=== PATIENT | female | born 1950 | race Caucasian/White ===

== ENCOUNTER 2017-05-07 14:50 | Emergency (ER) | payer MEDICARE, OTHER ==
[~2017-05-07] VITALS: Ht 160 cm; Wt 111.1 kg
[2017-05-07] MEDS ORDERED: ZESTORETIC 20-121 EA (15:00)
[2017-05-07] MEDS ORDERED: LISI5 (15:00)
[2017-05-07 15:19] LABS: BASOPHILS ABSOLUTE AUTO 0.02 K/mm3 (0.00-0.23); BASOPHILS PERCENT AUTO 0 % (0-2); EOSINOPHILS ABSOLUTE AUTO 0.15 K/mm3 (0.00-0.68); EOSINOPHILS PERCENT AUTO 1 % (0-6); Hematocrit 47.3 % (33.0-51.0); Hemoglobin 16.7 g/dL (11.5-16.0); IMMATURE GRAN ABSOLUTE AUTO 0.03 K/mm3 (0.00-0.10); IMMATURE GRAN PERCENT AUTO 0 % (0-1); LYMPHOCYTES ABSOLUTE AUTO 2.07 K/mm3 (0.84-5.20); LYMPHOCYTES PERCENT AUTO 20 % (21-46); MONOCYTES PERCENT AUTO 9 % (4-13); Mean Corpuscular HGB 33.2 pg (26.0-34.0); Mean Corpuscular HGB Conc 35.3 g/dL (31.5-36.5); Mean Corpuscular Volume 94 fL (80-100); NEUTROPHILS ABSOLUTE AUTO 7.46 K/mm3 (1.96-9.15); NEUTROPHILS PERCENT AUTO 70 % (41-73); Platelet Count 237 K/mm3 (150-400); RDW Coefficient Variation 13.1 % (11.7-14.2); RDW Standard Deviation 44.7 fL (35.1-46.3); Red Blood Cell Count 5.03 M/mm3 (3.80-5.20); White Blood Cell Count 10.63 K/mm3 (4.00-11.30)
[2017-05-07 15:37] LABS: Alanine Aminotransfer (ALT/SGP 34 U/L (12-78); Albumin, Blood 3.3 g/dL (3.4-5.0); Albumin/Globulin Ratio 0.8 (0.8-1.8); Alk Phos 101 U/L (50-136); Anion Gap 6 mmol/L (6-16); Aspartate Aminotrans (AST/SGOT 24 U/L (12-37); Bilirubin, Total 0.4 mg/dL (0.1-1.0); Blood Urea Nitrogen 12 mg/dL (8-24); Bun/Creatinine Ratio 25.5 (12.0-20.0); CO2, Blood 30 mmol/L (21-32); Calcium, Blood 9.2 mg/dL (8.5-10.1); Chloride, Blood 105 mmol/L (98-108); Creatinine, Blood 0.47 mg/dL (0.40-1.00); Globulin, Blood 4.1 g/dL (2.2-4.0); Glomerular Filtration Rate >60 (60-); Glucose, Blood 110 mg/dL (70-99); Potassium, Blood 3.7 mmol/L (3.5-5.5); Sodium, Blood 141 mmol/L (136-145); Total Protein, Blood 7.4 g/dL (6.4-8.2)
[2017-05-07 17:49] LABS: Source, Urine Clean Catch
[2017-05-07 17:52] LABS: Bilirubin, Urine Neg (Neg); Blood, Urine 5+ (Neg); Glucose Qualitative, Urine Neg (Neg); Ketones, Urine Neg (Neg); Leukocyte Esterase, Urine 2+ (Neg); Nitrite, Urine Neg (Neg); Protein, Urine 1+ (Neg); Specific Gravity, Urine 1.015 (1.003-1.022); Urobilinogen, Urine NORM (Normal)
[2017-05-07 18:46] LABS: Appearance, Urine Hazy (Clear); Color, Urine Yellow (P-Yellow)
[2017-05-07 18:50] LABS: Bacteria Mod /hpf; Red Blood Cells, Urine 25-50 /hpf (0-2); Squamous Epithelial Cells Few /hpf (Few); White Blood Cells, Urine 25-50 /hpf (0-5)
[2017-05-07] MEDS ORDERED: CEPH500 PO (21:42)
== END 2017-05-07 22:00 | disposition home or self-care (01) ==
LOC: ER 14:50
PROVIDERS: Emergency Medicine
DX: N20.0 Calculus of kidney (principal); N39.0 Urinary tract infection, site not specified; E27.8 Other specified disorders of adrenal gland; I10 Essential (primary) hypertension; F17.200 Nicotine dependence, unspecified, uncomplicated; Z88.2 Allergy status to sulfonamides; Z79.899 Other long term (current) drug therapy; Z98.84 Bariatric surgery status
CPT/HCPCS: 36415; 74176; 80053; 81001; 85025; 96365; 96375; 99284; J0696; J1885; J2270

== ENCOUNTER 2017-07-08 08:44 | Emergency (ER) | payer MEDICARE, OTHER ==
[~2017-07-08] VITALS: Ht 160 cm; Wt 108.9 kg
[~2017-07-08 08:44] MED LIST: CEPH500 PO; LISI5; ZESTORETIC 20-121 EA
[2017-07-08 09:57] LABS: BASOPHILS ABSOLUTE AUTO 0.03 K/mm3 (0.00-0.23); BASOPHILS PERCENT AUTO 0 % (0-2); EOSINOPHILS ABSOLUTE AUTO 0.04 K/mm3 (0.00-0.68); EOSINOPHILS PERCENT AUTO 0 % (0-6); Hematocrit 45.5 % (33.0-51.0); Hemoglobin 15.7 g/dL (11.5-16.0); IMMATURE GRAN ABSOLUTE AUTO 0.04 K/mm3 (0.00-0.10); IMMATURE GRAN PERCENT AUTO 0 % (0-1); LYMPHOCYTES ABSOLUTE AUTO 1.26 K/mm3 (0.84-5.20); LYMPHOCYTES PERCENT AUTO 8 % (21-46); MONOCYTES ABSOLUTE AUTO 1.52 K/mm3 (0.16-1.47); MONOCYTES PERCENT AUTO 10 % (4-13); Mean Corpuscular HGB 32.6 pg (26.0-34.0); Mean Corpuscular HGB Conc 34.5 g/dL (31.5-36.5); Mean Corpuscular Volume 95 fL (80-100); Mean Platelet Volume 10.7 fL (9.1-12.4); NEUTROPHILS ABSOLUTE AUTO 12.22 K/mm3 (1.96-9.15); NEUTROPHILS PERCENT AUTO 81 % (41-73); Platelet Count 188 K/mm3 (150-400); RDW Coefficient Variation 12.6 % (11.7-14.2); RDW Standard Deviation 44.1 fL (35.1-46.3); Red Blood Cell Count 4.81 M/mm3 (3.80-5.20); White Blood Cell Count 15.11 K/mm3 (4.00-11.30)
[2017-07-08 10:13] LABS: Alanine Aminotransfer (ALT/SGP 21 U/L (12-78); Albumin, Blood 2.9 g/dL (3.4-5.0); Albumin/Globulin Ratio 0.7 (0.8-1.8); Alk Phos 84 U/L (50-136); Anion Gap 7 mmol/L (6-16); Aspartate Aminotrans (AST/SGOT 12 U/L (12-37); Blood Urea Nitrogen 11 mg/dL (8-24); CO2, Blood 27 mmol/L (21-32); Calcium, Blood 8.4 mg/dL (8.5-10.1); Chloride, Blood 105 mmol/L (98-108); Creatinine, Blood 0.58 mg/dL (0.40-1.00); Globulin, Blood 4.4 g/dL (2.2-4.0); Glomerular Filtration Rate >60 (60-); Glucose, Blood 95 mg/dL (70-99); Potassium, Blood 3.5 mmol/L (3.5-5.5); Sodium, Blood 139 mmol/L (136-145); Total Protein, Blood 7.3 g/dL (6.4-8.2); Troponin I <0.015 ng/mL (0.000-0.040)
[2017-07-08 10:35] LABS: Source, Urine Clean Catch
[2017-07-08 10:51] LABS: Bilirubin, Urine Neg (Neg); Blood, Urine 4+ (Neg); Glucose Qualitative, Urine Neg (Neg); Ketones, Urine Neg (Neg); Leukocyte Esterase, Urine 3+ (Neg); Nitrite, Urine Neg (Neg); Protein, Urine 2+ (Neg); Specific Gravity, Urine 1.015 (1.003-1.022); Urobilinogen, Urine NORM (Normal)
[2017-07-08 11:01] LABS: Appearance, Urine Cloudy (Clear); Color, Urine Amber (P-Yellow)
[2017-07-08 11:02] LABS: Bacteria Many /hpf; Red Blood Cells, Urine 0-2 /hpf (0-2); Squamous Epithelial Cells Mod /hpf (Few)
[2017-07-08] MEDS ORDERED: Zofran Odt4 MG SL (11:29)
[2017-07-08] MEDS ORDERED: CEPH500 PO (11:29)
[2017-07-08] MEDS ORDERED: Flomax0.4 MG PO (11:29)
[2017-07-08] MEDS ORDERED: Norco 5-325 Ta1 EACH PO (11:29)
== END 2017-07-08 12:07 | disposition home or self-care (01) ==
LOC: ER 08:44
PROVIDERS: Emergency Medicine
DX: N39.0 Urinary tract infection, site not specified (principal); D35.00 Benign neoplasm of unspecified adrenal gland; N20.0 Calculus of kidney; Z88.2 Allergy status to sulfonamides; Z79.899 Other long term (current) drug therapy; I10 Essential (primary) hypertension
CPT/HCPCS: 36415; 71046; 80053; 81001; 84484; 85025; 87077; 87086; 87186; 93005; 93010; 96361; 96374; 96375; 96376; 99284; J0696; J1170; J1885; J2405; J7030

== ENCOUNTER 2017-07-15 13:21 | Emergency (ER) | payer MEDICARE, OTHER ==
[~2017-07-15] VITALS: Ht 160 cm; Wt 108.0 kg
[~2017-07-15 13:21] MED LIST changes: +Flomax0.4 MG PO; +Norco 5-325 Ta1 EACH PO; +Zofran Odt4 MG SL
[2017-07-15 13:57] LABS: BASOPHILS ABSOLUTE AUTO 0.03 K/mm3 (0.00-0.23); BASOPHILS PERCENT AUTO 0 % (0-2); EOSINOPHILS ABSOLUTE AUTO 0.18 K/mm3 (0.00-0.68); EOSINOPHILS PERCENT AUTO 2 % (0-6); Hematocrit 45.3 % (33.0-51.0); Hemoglobin 15.7 g/dL (11.5-16.0); IMMATURE GRAN ABSOLUTE AUTO 0.02 K/mm3 (0.00-0.10); IMMATURE GRAN PERCENT AUTO 0 % (0-1); LYMPHOCYTES PERCENT AUTO 23 % (21-46); MONOCYTES ABSOLUTE AUTO 0.59 K/mm3 (0.16-1.47); MONOCYTES PERCENT AUTO 7 % (4-13); Mean Corpuscular HGB 32.3 pg (26.0-34.0); Mean Corpuscular HGB Conc 34.7 g/dL (31.5-36.5); Mean Corpuscular Volume 93 fL (80-100); Mean Platelet Volume 10.2 fL (9.1-12.4); NEUTROPHILS ABSOLUTE AUTO 5.83 K/mm3 (1.96-9.15); NEUTROPHILS PERCENT AUTO 68 % (41-73); Platelet Count 273 K/mm3 (150-400); RDW Coefficient Variation 12.2 % (11.7-14.2); RDW Standard Deviation 42.5 fL (35.1-46.3); Red Blood Cell Count 4.86 M/mm3 (3.80-5.20); White Blood Cell Count 8.65 K/mm3 (4.00-11.30)
[2017-07-15 14:30] LABS: Alanine Aminotransfer (ALT/SGP 39 U/L (12-78); Albumin, Blood 2.9 g/dL (3.4-5.0); Albumin/Globulin Ratio 0.6 (0.8-1.8); Alk Phos 111 U/L (50-136); Anion Gap 6 mmol/L (6-16); Aspartate Aminotrans (AST/SGOT 25 U/L (12-37); Bilirubin, Total 0.3 mg/dL (0.1-1.0); Blood Urea Nitrogen 11 mg/dL (8-24); Bun/Creatinine Ratio 23.7 (12.0-20.0); CO2, Blood 28 mmol/L (21-32); Calcium, Blood 9.4 mg/dL (8.5-10.1); Chloride, Blood 105 mmol/L (98-108); Creatinine, Blood 0.47 mg/dL (0.40-1.00); Globulin, Blood 4.6 g/dL (2.2-4.0); Glomerular Filtration Rate >60 (60-); Glucose, Blood 93 mg/dL (70-99); Sodium, Blood 139 mmol/L (136-145); Total Protein, Blood 7.5 g/dL (6.4-8.2)
[2017-07-15 15:44] LABS: Source, Urine Clean Catch
[2017-07-15 15:52] LABS: Appearance, Urine Cloudy (Clear); Bilirubin, Urine Neg (Neg); Blood, Urine 5+ (Neg); Color, Urine Amber (P-Yellow); Glucose Qualitative, Urine Neg (Neg); Ketones, Urine 1+ (Neg); Leukocyte Esterase, Urine 3+ (Neg); Nitrite, Urine Neg (Neg); Protein, Urine 3+ (Neg); Urobilinogen, Urine NORM (Normal)
[2017-07-15 16:02] LABS: Red Blood Cells, Urine TNTC /hpf (0-2)
[2017-07-15 16:03] LABS: Bacteria Many /hpf; Squamous Epithelial Cells Mod /hpf (Few)
[2017-07-15 16:04] LABS: Transitional Epithelial Cells Few /hpf (0-Rare)
== END 2017-07-15 17:50 | disposition short-term general hospital (02) ==
LOC: ER 13:21
PROVIDERS: Emergency Medicine; Physician Assistant
DX: N20.0 Calculus of kidney (principal); I10 Essential (primary) hypertension; Z88.2 Allergy status to sulfonamides; Z79.899 Other long term (current) drug therapy; F17.200 Nicotine dependence, unspecified, uncomplicated
CPT/HCPCS: 36415; 76770; 80053; 81001; 83735; 85025; 87086; 96361; 96374; 96375; 96376; 99285; J0696; J1170; J1885; J2405; J7030

== ENCOUNTER 2017-07-27 12:35 | Emergency (ER) | payer MEDICARE, OTHER ==
[~2017-07-27] VITALS: Ht 160 cm; Wt 108.9 kg
[2017-07-27 14:08] LABS: BASOPHILS ABSOLUTE AUTO 0.03 K/mm3 (0.00-0.23); BASOPHILS PERCENT AUTO 0 % (0-2); EOSINOPHILS ABSOLUTE AUTO 0.19 K/mm3 (0.00-0.68); EOSINOPHILS PERCENT AUTO 2 % (0-6); Hematocrit 47.7 % (33.0-51.0); Hemoglobin 16.4 g/dL (11.5-16.0); IMMATURE GRAN ABSOLUTE AUTO 0.03 K/mm3 (0.00-0.10); IMMATURE GRAN PERCENT AUTO 0 % (0-1); LYMPHOCYTES ABSOLUTE AUTO 2.03 K/mm3 (0.84-5.20); LYMPHOCYTES PERCENT AUTO 24 % (21-46); MONOCYTES ABSOLUTE AUTO 0.83 K/mm3 (0.16-1.47); MONOCYTES PERCENT AUTO 10 % (4-13); Mean Corpuscular HGB 32.2 pg (26.0-34.0); Mean Corpuscular HGB Conc 34.4 g/dL (31.5-36.5); Mean Corpuscular Volume 94 fL (80-100); Mean Platelet Volume 10.6 fL (9.1-12.4); NEUTROPHILS ABSOLUTE AUTO 5.42 K/mm3 (1.96-9.15); NEUTROPHILS PERCENT AUTO 64 % (41-73); Platelet Count 243 K/mm3 (150-400); RDW Coefficient Variation 12.4 % (11.7-14.2); Red Blood Cell Count 5.09 M/mm3 (3.80-5.20); White Blood Cell Count 8.53 K/mm3 (4.00-11.30)
[2017-07-27 14:11] LABS: Source, Urine Clean Catch
[2017-07-27 14:15] LABS: Alanine Aminotransfer (ALT/SGP 33 U/L (12-78); Albumin, Blood 3.2 g/dL (3.4-5.0); Albumin/Globulin Ratio 0.7 (0.8-1.8); Alk Phos 87 U/L (50-136); Anion Gap 7 mmol/L (6-16); Aspartate Aminotrans (AST/SGOT 26 U/L (12-37); Bilirubin, Total 0.3 mg/dL (0.1-1.0); Blood Urea Nitrogen 10 mg/dL (8-24); CO2, Blood 27 mmol/L (21-32); Calcium, Blood 8.9 mg/dL (8.5-10.1); Chloride, Blood 105 mmol/L (98-108); Creatinine, Blood 0.45 mg/dL (0.40-1.00); Globulin, Blood 4.3 g/dL (2.2-4.0); Glomerular Filtration Rate >60 (60-); Glucose, Blood 78 mg/dL (70-99); Potassium, Blood 3.9 mmol/L (3.5-5.5); Sodium, Blood 139 mmol/L (136-145); Total Protein, Blood 7.5 g/dL (6.4-8.2)
[2017-07-27 14:16] LABS: Bilirubin, Urine Neg (Neg); Blood, Urine 5+ (Neg); Glucose Qualitative, Urine Neg (Neg); Ketones, Urine Neg (Neg); Leukocyte Esterase, Urine 1+ (Neg); Nitrite, Urine Neg (Neg); Protein, Urine Neg (Neg); Specific Gravity, Urine 1.005 (1.003-1.022); Urobilinogen, Urine NORM (Normal)
[2017-07-27 15:07] LABS: Appearance, Urine Clear (Clear); Color, Urine Pale Yellow (P-Yellow)
[2017-07-27 15:08] LABS: Red Blood Cells, Urine Not Seen /hpf (0-2); Squamous Epithelial Cells Few /hpf (Few); White Blood Cells, Urine Not Seen /hpf (0-5)
[2017-07-27 15:10] LABS: Bacteria Not Seen /hpf
[2017-07-27] MEDS ORDERED: Percocet 5-3251 EACH PO (20:54)
== END 2017-07-27 21:08 | disposition home or self-care (01) ==
LOC: ER 12:35
PROVIDERS: Emergency Medicine
DX: R32 Unspecified urinary incontinence (principal); R10.9 Unspecified abdominal pain; I10 Essential (primary) hypertension; F17.200 Nicotine dependence, unspecified, uncomplicated; Z96.0 Presence of urogenital implants; Z88.2 Allergy status to sulfonamides; Z79.899 Other long term (current) drug therapy; Z87.442 Personal history of urinary calculi
CPT/HCPCS: 36415; 74018; 76770; 80053; 81001; 83690; 85025; 87086; 96374; 96375; 96376; 99284; J1885; J2405; J3010

== ENCOUNTER → 2017-09-21 | Emergency (ER) | payer MEDICARE, OTHER ==
[~2017-09-21] MED LIST changes: +Percocet 5-3251 EACH PO
== END ==
LOC: ER 12:46
DX: Z53.21 Procedure and treatment not carried out due to patient leaving prior to being seen by health care provider (principal)

== ENCOUNTER 2018-08-04 05:57 | Day surgery (SDC) | payer MEDICARE, OTHER ==
[~2018-08-04] VITALS: Ht 162.6 cm; Wt 133.0 kg
[~2018-08-04 05:57] MED LIST changes: +ASCO500 PO; +ASPI325 PO; +BIOTIN2500 MCG PO; +Fish Oil 10001000 MG PO; +Hair, Skin & N1 EACH PO; +OMEPRAZOLE MAGN20 MG PO; +TRAM50 PO
--- NOTE | 2018-08-04 06:51 | NUR ---
History, Chart, Medications and Allergies reviewed before start of procedure. Lungs with expiratory wheeze. Denies SOB.
--- NOTE | 2018-08-04 10:40 | NUR ---
REPORT FROM PACU.
--- NOTE | 2018-08-04 10:50 | NUR ---
PT TO ROOM 213 VIA STRETCHER. ALERT AND ORIENTED. PT FAMILY WITH PRESENT.
--- NOTE | 2018-08-04 12:08 | NUR ---
PT MEDICATED WITH PRILOSEC PER REQUEST. PAIN MANAGED. ASSISTED PT TO SITTING ON SIDE OF BED TO DANGLE LEGS.
--- NOTE | 2018-08-04 14:33 | NUR ---
SNACK PROVIDED TO PT. PT MEDICATED WITH 1 OXY PO FOR C/O PAIN5/10. PT SITTING IN CHAIR AFTER WORKING WITH THERAPY. POLAR CARE TO KNEE.
--- NOTE | 2018-08-04 15:37 | NUR ---
PT SITTING UP IN CHAIR. DANGLING LEGS. NADN. FAMILY AT BEDSIDE.
--- NOTE | 2018-08-04 16:10 | NUR ---
pt ambulates approx 150ft with walker. yo activity well. minimal assistance needed.
--- NOTE | 2018-08-04 16:56 | NUR ---
FAMILY AT BEDSIDE, ANCEF STARTED PER EMAR. PT SITTING IN CHAIR.
--- NOTE | 2018-08-05 04:23 | NUR ---
SUMMARY POD 1 S/P RTKA. HAS DONE VERY WELL DURING NIGHT. PT IS UP AMBULATING WITH JUST SBA WITH FWW AND TOLERATES WELL. PAIN IS MANAGED WITH 2 OXYCODONE. DRESSING TO RIGHT KNEE CDI WITH GOOD CIRC CHECKS. TOLERATING PO, IV SL. VOIDING WELL. PLAN FOR DC HOME TODAY AFTER PT/OT.
[2018-08-05 04:25] LABS: BASOPHILS ABSOLUTE AUTO 0.01 K/mm3 (0.00-0.23); BASOPHILS PERCENT AUTO 0 % (0-2); EOSINOPHILS ABSOLUTE AUTO 0.04 K/mm3 (0.00-0.68); EOSINOPHILS PERCENT AUTO 0 % (0-6); Hematocrit 36.7 % (33.0-51.0); Hemoglobin 12.6 g/dL (11.5-16.0); IMMATURE GRAN ABSOLUTE AUTO 0.06 K/mm3 (0.00-0.10); IMMATURE GRAN PERCENT AUTO 0 % (0-1); LYMPHOCYTES ABSOLUTE AUTO 1.15 K/mm3 (0.84-5.20); LYMPHOCYTES PERCENT AUTO 8 % (21-46); MONOCYTES ABSOLUTE AUTO 1.17 K/mm3 (0.16-1.47); MONOCYTES PERCENT AUTO 8 % (4-13); Mean Corpuscular HGB Conc 34.3 g/dL (31.5-36.5); Mean Corpuscular Volume 96 fL (80-100); Mean Platelet Volume 10.7 fL (9.1-12.4); NEUTROPHILS ABSOLUTE AUTO 11.93 K/mm3 (1.96-9.15); NEUTROPHILS PERCENT AUTO 83 % (41-73); Platelet Count 183 K/mm3 (150-400); RDW Coefficient Variation 12.4 % (11.7-14.2); RDW Standard Deviation 43.4 fL (35.1-46.3); Red Blood Cell Count 3.82 M/mm3 (3.80-5.20); White Blood Cell Count 14.36 K/mm3 (4.00-11.30)
[2018-08-05 04:43] LABS: Anion Gap 8 mmol/L (6-16); Blood Urea Nitrogen 17 mg/dL (8-24); Bun/Creatinine Ratio 30.8 (12.0-20.0); CO2, Blood 27 mmol/L (21-32); Calcium, Blood 8.5 mg/dL (8.5-10.1); Chloride, Blood 103 mmol/L (98-108); Creatinine, Blood 0.55 mg/dL (0.40-1.00); Glomerular Filtration Rate >60 (60-); Glucose, Blood 110 mg/dL (70-99); Magnesium, Blood 2.1 mg/dL (1.6-2.4); Sodium, Blood 138 mmol/L (136-145)
[2018-08-05] MEDS ORDERED: OXYC5 PO (10:08)
[2018-08-05] MEDS ORDERED: PROM25 PO (10:08)
[2018-08-05] MEDS ORDERED: ENOX40I SC (10:09)
--- NOTE | 2018-08-05 14:50 | NUR ---
08/05/18 1450 Regi Major VERIFICATIONS: EDIT CHART.
== END 2018-08-05 11:01 | disposition home or self-care (01) ==
LOC: ORSCMMR 05:57 → ORD 07:30 → SURS 10:50 → ORSCMMR 08-05 11:01
PROVIDERS: Orthopaedic Surgery
PROC: 0SRC0J9 Replacement of Right Knee Joint with Synthetic Substitute, Cemented, Open Approach (ICD-10-PCS; principal; 2018-08-04 07:30)
PROC: 8E0YXBZ Computer Assisted Procedure of Lower Extremity (ICD-10-PCS; principal; 2018-08-04 07:30)
DX: M17.11 Unilateral primary osteoarthritis, right knee (principal); I10 Essential (primary) hypertension; J45.909 Unspecified asthma, uncomplicated; Z87.891 Personal history of nicotine dependence; E66.01 Morbid (severe) obesity due to excess calories; Z68.43 Body mass index [BMI] 50.0-59.9, adult
CPT/HCPCS: 36415; 73560-RT; 80048; 83735; 85025; 88300; 97110; 97116; 97162; 97530; C1713; C1776; J0171; J0690; J0735; J1100; J1650; J1885; J2250; J2405; J2704; J2795; J3370; J7120

== ENCOUNTER → 2018-09-02 | Outpatient (CLI) | payer MEDICARE, OTHER ==
[~2018-09-02] MED LIST changes: +ENOX40I SC; +OXYC5 PO; +PROM25 PO
== END | disposition home or self-care (01) ==
LOC: LAB SHORT 11:36 → LAB 11:36
DX: N39.0 Urinary tract infection, site not specified (principal)
CPT/HCPCS: 87077; 87086; 87186

== ENCOUNTER 2018-11-10 06:01 | Day surgery (SDC) | payer MEDICARE, OTHER ==
[~2018-11-10] VITALS: Ht 162.6 cm; Wt 125.3 kg
--- NOTE | 2018-11-10 06:49 | NUR ---
History, Chart, Medications and Allergies reviewed before start of procedure. Lungs clear T/O to Auscultation. Patient confirms NPO status and agrees with scheduled surgery. Pre-Op teaching done. Pt verbalizes understanding.
--- NOTE | 2018-11-10 10:41 | NUR ---
1025-assumed care of pt. BLADDER SCAN SHOWED 512ML OF URINE. PT REFUSES TO BE CATHED. ATTEMPTED USE OF BEDPAN.PT WANTS TO GET ON COMMODE.
--- NOTE | 2018-11-10 11:24 | NUR ---
IMMEDIATELY UPON TRANSFER TO ROOM, PT REQUESTS TO USE THE TOILET. THIS RN ASSESSED SENSATION/STRENGTH TO BLE WITH FULL FEELING AND STRENGTH. PT TOLERATED TRANSFER TO BATHROOM WITH FWW AND GAIT BELT, TWO NURSING STAFF MEMBERS ACCOMPANY. PT UP IN CHAIR CURRENTLY
--- NOTE | 2018-11-10 17:12 | NUR ---
SHIFT SUMMARY: PT REMAINED A/0 X 4, PLEASANT/COOPERATIVE, AMBULATED IN HALLWAY WITH PT AND WITH NURSING STAFF. PT TOLERATED PO INTAKE WITH NO N/V. PT STATES PAIN CONTROLLED PER MAR TO HER EXPECTATION. PT HAS URINE OUTPUT >300 ML FROM 1230 TO CURRENT. POST OP VSS AND COMPLETE.
[2018-11-11 04:42] LABS: BASOPHILS ABSOLUTE AUTO 0.02 K/mm3 (0.00-0.23); BASOPHILS PERCENT AUTO 0 % (0-2); EOSINOPHILS ABSOLUTE AUTO 0.08 K/mm3 (0.00-0.68); EOSINOPHILS PERCENT AUTO 1 % (0-6); Hematocrit 38.4 % (33.0-51.0); Hemoglobin 12.8 g/dL (11.5-16.0); IMMATURE GRAN ABSOLUTE AUTO 0.06 K/mm3 (0.00-0.10); IMMATURE GRAN PERCENT AUTO 0 % (0-1); LYMPHOCYTES ABSOLUTE AUTO 1.32 K/mm3 (0.84-5.20); LYMPHOCYTES PERCENT AUTO 9 % (21-46); MONOCYTES PERCENT AUTO 9 % (4-13); Mean Corpuscular HGB 31.4 pg (26.0-34.0); Mean Corpuscular HGB Conc 33.3 g/dL (31.5-36.5); Mean Corpuscular Volume 94 fL (80-100); Mean Platelet Volume 10.6 fL (9.1-12.4); NEUTROPHILS ABSOLUTE AUTO 11.74 K/mm3 (1.96-9.15); NEUTROPHILS PERCENT AUTO 81 % (41-73); Platelet Count 222 K/mm3 (150-400); RDW Coefficient Variation 12.6 % (11.7-14.2); RDW Standard Deviation 43.6 fL (35.1-46.3); Red Blood Cell Count 4.07 M/mm3 (3.80-5.20); White Blood Cell Count 14.52 K/mm3 (4.00-11.30)
[2018-11-11 05:09] LABS: Anion Gap 6 mmol/L (6-16); Blood Urea Nitrogen 16 mg/dL (8-24); Bun/Creatinine Ratio 26.9 (12.0-20.0); CO2, Blood 30 mmol/L (21-32); Calcium, Blood 8.6 mg/dL (8.5-10.1); Chloride, Blood 104 mmol/L (98-108); Glomerular Filtration Rate >60 (60-); Glucose, Blood 105 mg/dL (70-99); Magnesium, Blood 1.8 mg/dL (1.6-2.4); Potassium, Blood 3.5 mmol/L (3.5-5.5); Sodium, Blood 140 mmol/L (136-145)
--- NOTE | 2018-11-11 06:34 | NUR ---
SHIFT SUMMARY SLEPT SITTING UP IN CHAIR. HAS AMBULATED IN HALLWAY X3 THIS SHIFT. VSS, DENIES PAIN AT THIS TIME. GIVEN PRN PAIN MEDS X2 THIS SHIFT. DENIES FURTHER NEEDS AT TTHIS TIME. SAFETY MEASURES IN PLACE. WILL GIVEN HAND OFF TO ONCOMING SHIFT USING SBAR.
[2018-11-11] MEDS ORDERED: ENOX40I SC (07:51)
[2018-11-11] MEDS ORDERED: ROXICODONE5 MG PO (07:52)
[2018-11-11] MEDS ORDERED: LEVFLO500 PO (07:57)
[2018-11-11] MEDS ORDERED: CLIN300 PO (07:57)
--- NOTE | 2018-11-11 09:52 | NUR ---
DISCHARGE PT PROVIDED WITH WRITTEN AND VERBAL DISCHARGE INSTRUCTIONS. SHE REPORTED UNDERSTANDING AFTER QUESTIONS WERE ANSWERED. DRESSING CHANGED TO AQUACEL DRESSING AND PT EDUCATED HOW TO USE AQUACEL AT HOME. PT REPORTED SHE ALREADY HAD HER MEDICATION SCRIPTS FILLED. PT ALERT AND ORNIENTED AT TIME OF DISCHARGE. PT MET ALL GOALS. PT ESCORTED OUT IN W/C.
--- NOTE | 2018-11-12 09:52 | NUR ---
11/12/18 0952 Regi Major VERIFICATIONS: EDIT CHART.
== END 2018-11-11 09:41 | disposition home or self-care (01) ==
LOC: ORSCMMR 06:01 → ORD 07:30 → SURS 11:10 → ORSCMMR 11-11 09:41 → SURS 11-11 09:41
PROVIDERS: Orthopaedic Surgery
PROC: 8E0YXBZ Computer Assisted Procedure of Lower Extremity (ICD-10-PCS; principal; 2018-11-10 07:30)
PROC: 0SRD0J9 Replacement of Left Knee Joint with Synthetic Substitute, Cemented, Open Approach (ICD-10-PCS; principal; 2018-11-10 07:30)
DX: M17.12 Unilateral primary osteoarthritis, left knee (principal); I10 Essential (primary) hypertension; J45.909 Unspecified asthma, uncomplicated; K21.9 Gastro-esophageal reflux disease without esophagitis; E66.01 Morbid (severe) obesity due to excess calories; Z68.41 Body mass index [BMI] 40.0-44.9, adult; Z79.899 Other long term (current) drug therapy; Z79.82 Long term (current) use of aspirin
CPT/HCPCS: 36415; 73560-LT; 80048; 83735; 85025; 88300; 97110; 97116; 97161; 97530; C1713; C1776; J0171; J0690; J0735; J1100; J1650; J1885; J2250; J2370; J2405; J2704; J2795; J3010; J3370; J7120; Q0163